=== PATIENT | female | born 1955 | race Hispanic/Latino ===

== ENCOUNTER 2018-12-25 14:34 | Outpatient (CLI) | payer OTHER ==
--- NOTE | 2018-12-25 15:34 | BD ---
DEXA DENSITOMETRY: HISTORY: Postmenopausal screening. FINDINGS: LUMBAR SPINE BMD (g/cm2) T-SCORE L1 1.183 1.8 L2 1.247 2.0 L3 1.314 2.1 L4 1.357 2.7 TOTAL 1.277 2.1 FEMORAL NECK 0.772 -0.7 TOTAL 1.001 0.5 IMPRESSION: The bone mineral density of the lumbar spine and the femoral neck are both within the normal range. POS: OFF
== END 2018-12-25 14:35 | disposition home or self-care (01) ==
LOC: BICMAMMO 14:34
PROVIDERS: ATTEND Family Medicine
DX: Z13.820 Encounter for screening for osteoporosis (principal)
CPT/HCPCS: 77080

== ENCOUNTER → 2019-10-10 | Day surgery (SDC) | payer BC ==
--- NOTE | 2019-10-10 13:40 | MMO ---
MAMMOGRAM FINDINGS: The breasts are heterogeneously dense, which could obscure a lesion on mammography. There is a new biopsy clip seen in the outer region of the right breast. IMPRESSION: NEW BIOPSY CLIP IN THE RIGHT BREAST IS CONFIRMED UTILIZING POST PROCEDURE MAMMOGRAM. Reported by: KRISHNA RUSSELL MD Electonically Signed: [id number]
--- NOTE | 2019-10-10 13:57 | ULT ---
EXAM: Ultrasound-guided right breast biopsy PROVIDED CLINICAL HISTORY: Right breast mass COMPARISON: 10/08/2019 ultrasound FINDINGS: Limited sonographic interrogation was performed of the right breast, with localization of the previou sly described mass. Informed consent was obtained from the patient. The skin overlying this region was prepped and draped in the usual sterile manner and the soft tissues anesthetized with 1% buffered lidocaine. A small skin incision was made. Continuous ultrasound guidance was utilized to obtain 4 core samples of the mass. Subsequently, continuous ultrasound guidance was utilized to place a biopsy site marker. [place] were withdrawn and hemostasis achieved. No immediate complications. IMPRESSION: Technically successful right breast biopsy. Please correlate with histology results to follow.
== END ==
LOC: BICULT 12:51
PROVIDERS: ATTEND Family Medicine
PROC: 0H9T3ZX Drainage of Right Breast, Percutaneous Approach, Diagnostic (ICD-10-PCS; principal; 2019-10-10)
DX: C50.411 Malignant neoplasm of upper-outer quadrant of right female breast (principal); Z88.6 Allergy status to analgesic agent
CPT/HCPCS: 19083; 88305; 88341; 88342

== ENCOUNTER 2019-11-28 07:04 | Outpatient (CLI) | payer BC, OTHER ==
[2019-11-28 16:30] LABS: SARS-CoV-2 MS2 Positive; SARS-CoV-2 N Gene Negative; SARS-CoV-2 S Gene Negative; SARS-CoV-2 by NAA Not Detected (NotDetected); SARS-CoV-2 orf1ab Negative
== END 2019-11-28 07:05 | disposition home or self-care (01) ==
LOC: LABBT 07:04
PROVIDERS: ATTEND Surgery
DX: C50.911 Malignant neoplasm of unspecified site of right female breast (principal); Z20.828 Contact with and (suspected) exposure to other viral communicable diseases
CPT/HCPCS: 87635; U0003

== ENCOUNTER 2019-12-03 10:26 | Day surgery (SDC) | payer BC ==
[2019-11-27 15:46] VITALS: BMI 28.3
[~2019-12-03 10:26] MED LIST: Dexamethasone 20 MG/5 ML VIAL ONE; EPHEDRINE 25 MG/5 ML SYRINGE ONE; Lidocaine 1% PF 5 ML VIAL ONE; Ondansetron PF 4 MG/2 ML Vial ONE; PHENYLEPHRINE-NS 100 MCG/ML 10 ML SYRINGE ONE; PROPOFOL 200 MG/20 ML VIAL ONE; diphenhydrAMINE 50 MG/ML VIAL ONE
[2019-12-03] MEDS ORDERED: Midazolam HCl 2 mg/2 ml Vial ONE (11:50)
[2019-12-03] MEDS ORDERED: Lidocaine 1% w/Epinephrine 1:100K 20 ML VIAL ONE (12:22)
[2019-12-03] MEDS ORDERED: Bupivacaine 0.25% HCL 30 ML VIAL ONE (12:22)
[2019-12-03] MEDS ORDERED: Fentanyl 100 MCG/2 ML VIAL ONE ×3 (12:28→14:10)
[2019-12-03] MEDS ORDERED: Famotidine/PF 20 mg/2ml Vial ONE (12:29)
[2019-12-03] MEDS ORDERED: HYDROcodone/Acetaminophen 5/325 mg Tablet ONE (15:42)
--- NOTE | 2019-12-04 13:39 | OP ---
DATE OF PROCEDURE: 12/03/2019 PREOPERATIVE DIAGNOSIS: Right breast cancer, locally invasive with positive margin. POSTOPERATIVE DIAGNOSIS: Right breast cancer, locally invasive with positive margin. PROCEDURE PERFORMED: Re-excision mastectomy, superior and anterior margin. ANESTHESIA: General. ESTIMATED BLOOD LOSS: Minimal. COMPLICATIONS: None. SPECIMEN: New superior margin x2. BRIEF HISTORY: The patient is a 64-year-old female, who previously underwent mastectomy for locally invasive cancer. She chose not to have neoadjuvant chemotherapy. On her final pathology, the malignancy approached the superior margin and was focally involved. She also has 1/1 sentinel nodes positive. She will need postop radiation treatment, but it was thought she would have better outcome with re-excision if possible. DESCRIPTION OF PROCEDURE: The patient was taken to the operating room and laid supine on the operating room table. After general anesthetic was obtained, the right breast chest cavity was re-prepped and draped in a sterile fashion. Laterally, the incision was reopened into the mastectomy space. There was exposed muscle posteriorly. There was some fat tissue on the superior aspect. This was able to be removed all the way up toward the shoulder. This was taken in 2 specimens with suture placed on new superior margin. The wound was irrigated. Local anesthetic was applied, and the breast incision was closed using 3-0 Vicryl, 4-0 Monocryl, and Dermabond. The patient was sent to Recovery in stable condition. All instrument counts, needle counts, lap counts are correct. Job ID: [id number]
== END 2019-12-03 16:20 | disposition home or self-care (01) ==
LOC: SDC 10:26
PROVIDERS: ATTEND Surgery
PROC: 0HBT0ZZ Excision of Right Breast, Open Approach (ICD-10-PCS; principal; 2019-12-03)
DX: C50.912 Malignant neoplasm of unspecified site of left female breast (principal); K21.9 Gastro-esophageal reflux disease without esophagitis; M19.90 Unspecified osteoarthritis, unspecified site; Z79.899 Other long term (current) drug therapy; Z88.6 Allergy status to analgesic agent; Z91.040 Latex allergy status
CPT/HCPCS: 88305; 88307; J0690; J1100; J1200; J2250; J2405; J2704; J3010; S0020; S0028

== ENCOUNTER 2020-10-13 14:28 | Outpatient (CLI) | payer BC | END 2020-10-13 14:29 | disposition home or self-care (01) | LOC: BICMAMMO 14:28 | PROVIDERS: ATTEND Internal Medicine Hematology & Oncology | DX: Z08 Encounter for follow-up examination after completed treatment for malignant neoplasm (principal); Z85.3 Personal history of malignant neoplasm of breast | CPT/HCPCS: G0279 ==

== ENCOUNTER 2021-08-04 15:03 | Outpatient (CLI) | payer BC ==
[2021-08-04 16:21] LABS: Hemoglobin 13.6 g/dL (12.0-15.5); MDiff Complete? YES; Mean Corpuscular HGB CONC 32.9 g/dL (32.0-36.0); Mean Corpuscular Hemoglobin 28.6 pg (27.0-33.0); Mean Corpuscular Volume 87.2 fl (81.6-98.3); Mean Platelet Volume 8.8 fl (7.4-10.4); Platelet Count 380 10x3/uL (150-450); RBC Distribution Width 12.9 % (11.5-14.5); Red Blood Cell (RBC) Count 4.75 10x6/uL (3.90-5.03); White Blood Cell (WBC) Count 7.8 10x3/uL (3.5-10.5)
[2021-08-04 16:43] LABS: Band 1 % (5-11); Eosinophils 3 % (0-10); Lymphocytes 23 % (21-51); Monocytes 4 % (0-10); Neutrophil 69 % (42-75); Platelet Morphology Comment Appears Adequate
[2021-08-04 16:53] LABS: INR-International Normal Ratio 0.9; Prothrombin Time 10.3 sec (9.5-12.1)
[2021-08-04 16:59] LABS: Anion Gap 15 mmol/L (10-20); BUN (Urea Nitrogen) 28 mg/dL (9.8-20.1); Calc. Creatinine Clearance 0 mL/min (70-130); Calcium 10.3 mg/dL (7.8-10.44); Carbon Dioxide 31 mmol/L (23-31); Chloride 98 mmol/L (98-107); Glucose 96 mg/dL (80-115); Potassium 3.4 mmol/L (3.5-5.1); Sodium 141 mmol/L (136-145)
[2021-08-04 22:49] LABS: SARS-CoV-2 PCR by NAA Not Detected (NotDetected)
== END 2021-08-04 15:04 | disposition home or self-care (01) ==
LOC: LABBT 15:03
PROVIDERS: ATTEND Orthopaedic Surgery
DX: Z01.818 Encounter for other preprocedural examination (principal); M17.11 Unilateral primary osteoarthritis, right knee; Z20.822 Contact with and (suspected) exposure to COVID-19
CPT/HCPCS: 80048; 85025; 85610; 87081; 93005; 93010; U0003; U0005

== ENCOUNTER 2021-08-09 05:39 | Observation (INO) | payer BC, MEDICARE ==
[2021-08-04 11:16] VITALS: BMI 29.2
[2021-08-09] MEDS ORDERED: Bupivacaine PF 0.5% 30 ML VIAL ONE (06:20)
[2021-08-09] MEDS ORDERED: Lidocaine 2% Jelly 5 ML TUBE ONE (06:21)
[2021-08-09] MEDS ORDERED: fentaNYL Citrate/PF 100 MCG/2 ML SYRINGE ONE (06:21)
[2021-08-09] MEDS ORDERED: Sodium Chloride 0.9% 100 ML ONE (06:32)
[2021-08-09] MEDS ORDERED: Tranexamic Acid 1,000 MG/10 ML VIAL ONE (06:32)
[2021-08-09] MEDS ORDERED: Vancomycin HCl 500 MG VIAL ONE (06:33)
[2021-08-09] MEDS ORDERED: Vancomycin 1 GM/200 ML BAG ONE (06:33)
[2021-08-09] MEDS ORDERED: Midazolam HCl 2 mg/2 ml Vial ONE (06:42)
[2021-08-09] MEDS ORDERED: Fentanyl 100 MCG/2 ML VIAL ONE (06:42)
[2021-08-09] MEDS ORDERED: Bupivacaine HCl 0.5%/Epinephrine 1:200,000/PF 30 ml Vial ONE (07:00)
[2021-08-09] MEDS ORDERED: Ondansetron PF 4 MG/2 ML Vial IVP PRN ×3 (07:02→11:15)
[2021-08-09] MEDS ORDERED: HYDROcodone/Acetaminophen 10/325 mg Tablet PO PRN ×5 (07:02→07:45)
[2021-08-09] MEDS ORDERED: Promethazine HCl 25 MG/ML VIAL IM PRN ×4 (07:02→11:15)
[2021-08-09] MEDS ORDERED: diphenhydrAMINE 25 MG CAP PO PRN ×2 (07:02→11:15)
[2021-08-09] MEDS ORDERED: Acetaminophen 325 MG TAB PO PRN (07:02)
[2021-08-09] MEDS ORDERED: Zolpidem Tartrate 5 MG TAB PO PRN ×3 (07:02→11:15)
[2021-08-09] MEDS ORDERED: ceFAZolin (BATCH) 2 GM/100 ML BAG ONE (07:03)
[2021-08-09] MEDS ORDERED: Loratadine 10 MG TAB PO PRN (07:15)
[2021-08-09] MEDS ORDERED: Ondansetron PF 4 MG/2 ML Vial ONE (07:31)
[2021-08-09] MEDS ORDERED: Dexamethasone 20 MG/5 ML VIAL ONE (07:31)
[2021-08-09] MEDS ORDERED: PHENYLEPHRINE-NS 100 MCG/ML 10 ML SYRINGE ONE (07:31)
[2021-08-09] MEDS ORDERED: PROPOFOL 200 MG/20 ML VIAL ONE (07:31)
[2021-08-09] MEDS ORDERED: Lidocaine 1% PF 5 ML VIAL ONE (07:31)
[2021-08-09] MEDS ORDERED: Fentanyl 100 MCG/2 ML VIAL IV PRN (07:44)
[2021-08-09] MEDS ORDERED: traMADol HCl 50 MG TAB PO PRN ×2 (07:45)
[2021-08-09] MEDS ORDERED: Ropivacaine 0.2% 550 ML 550 ML NERVE BLCK SCH (07:45)
[2021-08-09] MEDS ORDERED: Promethazine HCl 25 MG/ML VIAL IVPB PRN (08:54)
[2021-08-09] MEDS ORDERED: Ondansetron HCl/PF 4 MG/2 ML Vial IVP PRN (08:54)
[2021-08-09] MEDS ORDERED: Meperidine HCl/PF 25 MG/ML VIAL ONE (09:09)
[2021-08-09] MEDS ORDERED: Fentanyl 250 MCG/5 ML VIAL ONE (09:18)
[2021-08-09] MEDS ORDERED: HYDROmorphone 2 MG/ML VIAL ONE (11:04)
[2021-08-09] MEDS ORDERED: Ketorolac Tromethamine 30 MG/ML VIAL ONE (11:04)
[2021-08-09] MEDS ORDERED: Acetaminophen 500 MG TAB ONE (11:09)
[2021-08-09] MEDS ORDERED: Naloxone HCl 0.4 mg/ml Vial IV PRN (11:15)
[2021-08-09] MEDS ORDERED: Fentanyl CADD 100 ML IVPB SCH (11:15)
[2021-08-09] MEDS ORDERED: diphenhydrAMINE 50 MG/ML VIAL IM/IV PRN (11:15)
[2021-08-09] MEDS ORDERED: Ketorolac Tromethamine 30 MG/ML VIAL IVP SCH (12:00)
[2021-08-09] MEDS: Hydrochlorothiazide 25 MG TAB PO SCH (13:48)
[2021-08-09] MEDS: Sodium Chloride 0.9% 1,000 ML IV SCH ×2 (13:48→17:07)
[2021-08-09] MEDS: Acetaminophen 500 MG TAB PO SCH ×2 (13:48→17:41)
[2021-08-09] MEDS ORDERED: ceFAZolin (BATCH) 2 GM in Premix Bag 1 BAG IVPB SCH (15:00)
[2021-08-09] MEDS: CEFAZOLIN 2 GM in Sodium Chloride 0.9% 100 ML IVPB SCH (16:12)
[2021-08-09] MEDS ORDERED: CeleCOXIB 100 MG CAP PO PRN (18:03)
[2021-08-09] MEDS: Ketorolac Tromethamine 30 MG/ML VIAL IM SCH ×2 (18:11→21:42)
[2021-08-09] MEDS: Atorvastatin Calcium 10 MG TAB PO SCH (21:42)
[2021-08-10] MEDS: CEFAZOLIN 2 GM in Sodium Chloride 0.9% 100 ML IVPB SCH (00:03)
[2021-08-10] MEDS: Acetaminophen 500 MG TAB PO SCH ×5 (00:04→23:39)
[2021-08-10] MEDS: Sodium Chloride 0.9% 1,000 ML IV SCH ×3 (05:12→23:43)
[2021-08-10] MEDS: Ketorolac Tromethamine 30 MG/ML VIAL IM SCH ×3 (05:49→21:51)
[2021-08-10 06:13] LABS: Hemoglobin 13.2 g/dL (12.0-16.0); Mean Corpuscular HGB CONC 31.5 g/dL (32.0-36.0); Mean Corpuscular Hemoglobin 29.5 pg (27.0-31.0); Mean Corpuscular Volume 93.4 fL (78.0-98.0); Mean Platelet Volume 5.9 fL (7.4-10.4); Platelet Count 325 thou/uL (130-400); RBC Distribution Width 12.3 % (11.5-14.5); Red Blood Cell (RBC) Count 4.48 mill/uL (4.20-5.40); White Blood Cell (WBC) Count 10.8 thou/uL (4.8-10.8)
[2021-08-10] MEDS: Aspirin 81 mg Enteric Coated Tablet PO SCH ×2 (09:40→20:45)
[2021-08-10] MEDS: Multivitamin W/ Minerals 1 TAB PO SCH (09:40)
[2021-08-10] MEDS: Senokot S 8.6-50 MG TAB PO SCH ×2 (09:41→20:57)
[2021-08-10] MEDS: Ferrous Gluconate 324 MG TAB PO SCH ×2 (09:41→17:50)
[2021-08-10] MEDS: Hydrochlorothiazide 25 MG TAB PO SCH (09:42)
[2021-08-10] MEDS: Atorvastatin Calcium 10 MG TAB PO SCH (20:45)
[2021-08-11] MEDS: Ketorolac Tromethamine 30 MG/ML VIAL IM SCH ×2 (05:29→15:55)
[2021-08-11] MEDS: Acetaminophen 500 MG TAB PO SCH ×2 (05:32→11:31)
[2021-08-11] MEDS: Multivitamin W/ Minerals 1 TAB PO SCH (09:01)
[2021-08-11] MEDS: Aspirin 81 mg Enteric Coated Tablet PO SCH (09:01)
[2021-08-11] MEDS: Ferrous Gluconate 324 MG TAB PO SCH (09:01)
[2021-08-11] MEDS: Hydrochlorothiazide 25 MG TAB PO SCH (09:01)
[2021-08-11] MEDS: Senokot S 8.6-50 MG TAB PO SCH (09:02)
[2021-08-11] MEDS ORDERED: HYDROcodone/Acetaminophen 10/325 mg Tablet PO PRN (10:53)
[2021-08-11] MEDS: HYDROcodone/Acetaminophen 10/325 mg Tablet PO PRN ×2 (11:23→15:21)
[2021-08-11] MEDS: Sodium Chloride 0.9% 1,000 ML IV SCH (11:30)
[2021-08-11 12:42] VITALS: BP 125/77; TEMP 97.8
== END 2021-08-11 16:45 | disposition home or self-care (01) ==
LOC: SDC 05:39 → SJJU 07:02 → SDC 13:14
PROVIDERS: ADMIT Orthopaedic Surgery; ATTEND Orthopaedic Surgery
PROC: 0SRC0J9 Replacement of Right Knee Joint with Synthetic Substitute, Cemented, Open Approach (ICD-10-PCS; principal; 2021-08-09)
PROC: 8E0YXBZ Computer Assisted Procedure of Lower Extremity (ICD-10-PCS; 2021-08-09)
PROC: 3E0T3BZ Introduction of Anesthetic Agent into Peripheral Nerves and Plexi, Percutaneous Approach (ICD-10-PCS; 2021-08-09)
DX: M17.0 Bilateral primary osteoarthritis of knee (principal); K21.9 Gastro-esophageal reflux disease without esophagitis; Z85.3 Personal history of malignant neoplasm of breast; Z79.899 Other long term (current) drug therapy; Z88.6 Allergy status to analgesic agent; Z88.8 Allergy status to other drugs, medicaments and biological substances; Z91.040 Latex allergy status
CPT/HCPCS: 36415; 85027; 96365; 96372; 96375; 96376; A4306; C1713; C1776; G0378; J0690; J1100; J1170; J1885; J2175; J2250; J2405; J2704; J2795; J3010; J3370; J3490; S0020

== ENCOUNTER 2021-10-26 13:56 | Outpatient (CLI) | payer BC | END 2021-10-26 13:57 | disposition home or self-care (01) | LOC: BICMAMMO 13:56 | PROVIDERS: ATTEND Internal Medicine Hematology & Oncology | DX: Z13.820 Encounter for screening for osteoporosis (principal); N95.8 Other specified menopausal and perimenopausal disorders; Z85.3 Personal history of malignant neoplasm of breast | CPT/HCPCS: 77080; G0279 ==

== ENCOUNTER 2021-11-03 14:44 | Outpatient (CLI) | payer BC ==
[2021-11-03 15:53] LABS: #Monocytes 0.4 10x3/uL (0.0-1.1); #Neutrophils 3.5 10x3/uL (1.5-8.4); %Basophils 0.2 % (0.0-2.0); %Eosinophils 0.2 % (0.0-6.0); %Lymphocytes 24.9 % (18.0-47.0); %Monocytes 7.8 % (0.0-10.0); %Neutrophils 66.7 % (40.0-75.0); Mean Corpuscular HGB CONC 33.8 g/dL (32.0-36.0); Mean Corpuscular Hemoglobin 29.1 pg (27.0-33.0); Mean Corpuscular Volume 86.1 fl (81.6-98.3); Mean Platelet Volume 8.6 fl (7.4-10.4); Platelet Count 383 10x3/uL (150-450); RBC Distribution Width 13.8 % (11.5-14.5); Red Blood Cell (RBC) Count 4.81 10x6/uL (3.90-5.03); White Blood Cell (WBC) Count 5.2 10x3/uL (3.5-10.5)
[2021-11-03 16:12] LABS: INR-International Normal Ratio 0.9; Prothrombin Time 9.9 sec (9.5-12.1)
[2021-11-03 16:16] LABS: Anion Gap 14 mmol/L (10-20); BUN (Urea Nitrogen) 17 mg/dL (9.8-20.1); Calc. Creatinine Clearance 0 mL/min (70-130); Carbon Dioxide 30 mmol/L (23-31); Chloride 100 mmol/L (98-107); Estimated GFR 88; Glucose 97 mg/dL (80-115); Potassium 3.3 mmol/L (3.5-5.1); Sodium 141 mmol/L (136-145)
== END 2021-11-03 14:45 | disposition home or self-care (01) ==
LOC: LABBT 14:44
PROVIDERS: ATTEND Orthopaedic Surgery
DX: Z01.818 Encounter for other preprocedural examination (principal); Z20.822 Contact with and (suspected) exposure to COVID-19
CPT/HCPCS: 80048; 85025; 85610; 87081; 87811; 93005; 93010

== ENCOUNTER 2021-11-08 05:54 | Observation (INO) | payer BC, MEDICARE ==
[2021-11-07 08:54] VITALS: BMI 29.8
[2021-11-08] MEDS ORDERED: Tranexamic Acid 1,000 MG/10 ML VIAL ONE ×2 (06:08→09:14)
[2021-11-08] MEDS ORDERED: Vancomycin 1 GM/200 ML BAG ONE (06:08)
[2021-11-08] MEDS ORDERED: Sodium Chloride 0.9% 100 ML ONE ×2 (06:08→06:55)
[2021-11-08] MEDS ORDERED: Fentanyl 100 MCG/2 ML VIAL ONE ×4 (06:24→10:49)
[2021-11-08] MEDS ORDERED: Midazolam HCl 2 mg/2 ml Vial ONE ×2 (06:24→12:08)
[2021-11-08] MEDS ORDERED: Fentanyl 100 MCG/2 ML VIAL SLOW IVP PRN ×3 (06:46→09:43)
[2021-11-08] MEDS ORDERED: Promethazine HCl 25 MG/ML VIAL IM PRN ×2 (06:46→09:45)
[2021-11-08] MEDS ORDERED: Acetaminophen 325 MG TAB PO PRN (06:46)
[2021-11-08] MEDS ORDERED: HYDROcodone/Acetaminophen 10/325 mg Tablet PO PRN ×4 (06:46→14:15)
[2021-11-08] MEDS ORDERED: diphenhydrAMINE 25 MG CAP PO PRN (06:46)
[2021-11-08] MEDS ORDERED: Zolpidem Tartrate 5 MG TAB PO PRN ×2 (06:46→09:45)
[2021-11-08] MEDS ORDERED: Ondansetron PF 4 MG/2 ML Vial IVP PRN ×2 (06:46→09:45)
[2021-11-08] MEDS ORDERED: Loratadine 10 MG TAB PO PRN (06:48)
[2021-11-08] MEDS ORDERED: Bupivacaine PF 0.5% 30 ML VIAL ONE (06:49)
[2021-11-08] MEDS ORDERED: CEFAZOLIN 2 GM VIAL ONE (06:55)
[2021-11-08] MEDS ORDERED: PROPOFOL 200 MG/20 ML VIAL ONE (07:16)
[2021-11-08] MEDS ORDERED: Dexamethasone 20 MG/5 ML VIAL ONE (07:16)
[2021-11-08] MEDS ORDERED: Bupivacaine HCl 0.5%/Epinephrine 1:200,000/PF 30 ml Vial ONE (07:16)
[2021-11-08] MEDS ORDERED: Ondansetron PF 4 MG/2 ML Vial ONE (07:16)
[2021-11-08] MEDS ORDERED: fentaNYL Citrate/PF 100 MCG/2 ML SYRINGE ONE ×2 (07:35→07:56)
[2021-11-08] MEDS ORDERED: Aspirin 81 mg Enteric Coated Tablet PO SCH (09:00)
[2021-11-08] MEDS ORDERED: Ropivacaine 0.2% 550 ML 550 ML NERVE BLCK SCH (09:45)
[2021-11-08] MEDS ORDERED: HYDROmorphone 0.5 MG/0.5 ML SYRINGE ONE (11:21)
[2021-11-08] MEDS: Aspirin 81 mg Enteric Coated Tablet PO SCH ×2 (13:54→21:38)
[2021-11-08] MEDS: Sodium Chloride 0.9% 1,000 ML IV SCH ×2 (13:54→17:09)
[2021-11-08] MEDS: Ketorolac Tromethamine 30 MG/ML VIAL IVP SCH ×3 (13:54→23:26)
[2021-11-08] MEDS: Hydrochlorothiazide 25 MG TAB PO SCH (13:54)
[2021-11-08] MEDS ORDERED: Ketorolac Tromethamine 30 MG/ML VIAL IVP SCH (14:00)
[2021-11-08] MEDS: HYDROcodone/Acetaminophen 10/325 mg Tablet PO PRN ×3 (14:20→22:50)
[2021-11-08] MEDS: CEFAZOLIN 2 GM in Sodium Chloride 0.9% 100 ML IVPB SCH ×2 (14:21→23:26)
[2021-11-08] MEDS: Atorvastatin Calcium 10 MG TAB PO SCH (21:36)
[2021-11-08] MEDS: Anastrozole 1 MG TAB PO SCH (21:37)
[2021-11-09] MEDS: Sodium Chloride 0.9% 1,000 ML IV SCH ×4 (02:30→23:28)
[2021-11-09] MEDS: HYDROcodone/Acetaminophen 10/325 mg Tablet PO PRN ×3 (02:50→17:52)
[2021-11-09] MEDS: Ketorolac Tromethamine 30 MG/ML VIAL IVP SCH ×4 (05:46→23:26)
[2021-11-09 06:19] LABS: Hemoglobin 11.3 g/dL (12.0-16.0); Mean Corpuscular HGB CONC 33.4 g/dL (32.0-36.0); Mean Corpuscular Hemoglobin 30.3 pg (27.0-31.0); Mean Corpuscular Volume 90.9 fL (78.0-98.0); Mean Platelet Volume 6.6 fL (7.4-10.4); Platelet Count 285 thou/uL (130-400); Red Blood Cell (RBC) Count 3.73 mill/uL (4.20-5.40); White Blood Cell (WBC) Count 6.9 thou/uL (4.8-10.8)
[2021-11-09] MEDS: Multivitamin W/ Minerals 1 TAB PO SCH (08:24)
[2021-11-09] MEDS: Ferrous Gluconate 324 MG TAB PO SCH ×2 (08:24→17:43)
[2021-11-09] MEDS: Senokot S 8.6-50 MG TAB PO SCH ×2 (08:24→22:19)
[2021-11-09] MEDS: Hydrochlorothiazide 25 MG TAB PO SCH (08:24)
[2021-11-09] MEDS: Aspirin 81 mg Enteric Coated Tablet PO SCH ×2 (08:24→22:19)
[2021-11-09] MEDS: Anastrozole 1 MG TAB PO SCH ×2 (22:18→22:21)
[2021-11-09] MEDS: Atorvastatin Calcium 10 MG TAB PO SCH (22:19)
[2021-11-10] MEDS: HYDROcodone/Acetaminophen 10/325 mg Tablet PO PRN ×4 (00:02→14:52)
[2021-11-10] MEDS: Ketorolac Tromethamine 30 MG/ML VIAL IVP SCH (05:44)
[2021-11-10] MEDS: Ferrous Gluconate 324 MG TAB PO SCH (08:55)
[2021-11-10] MEDS: Hydrochlorothiazide 25 MG TAB PO SCH (08:55)
[2021-11-10] MEDS: Multivitamin W/ Minerals 1 TAB PO SCH (08:55)
[2021-11-10] MEDS: Senokot S 8.6-50 MG TAB PO SCH (08:55)
[2021-11-10] MEDS: Aspirin 81 mg Enteric Coated Tablet PO SCH (08:55)
[2021-11-10] MEDS: Sodium Chloride 0.9% 1,000 ML IV SCH (08:57)
[2021-11-10 13:44] VITALS: BP 107/69; TEMP 97.9
== END 2021-11-10 15:54 | disposition home or self-care (01) ==
LOC: SDC 05:54 → SJJU 07:00
PROVIDERS: ADMIT Orthopaedic Surgery; ATTEND Orthopaedic Surgery
PROC: 0SRD0J9 Replacement of Left Knee Joint with Synthetic Substitute, Cemented, Open Approach (ICD-10-PCS; principal; 2021-11-08)
PROC: 8E0YXBZ Computer Assisted Procedure of Lower Extremity (ICD-10-PCS; 2021-11-08)
PROC: 3E0T3BZ Introduction of Anesthetic Agent into Peripheral Nerves and Plexi, Percutaneous Approach (ICD-10-PCS; 2021-11-08)
DX: M17.12 Unilateral primary osteoarthritis, left knee (principal); K21.9 Gastro-esophageal reflux disease without esophagitis; Z85.3 Personal history of malignant neoplasm of breast; Z79.811 Long term (current) use of aromatase inhibitors; Z79.82 Long term (current) use of aspirin; Z79.899 Other long term (current) drug therapy; Z88.6 Allergy status to analgesic agent; Z88.8 Allergy status to other drugs, medicaments and biological substances; Z91.040 Latex allergy status; Z96.651 Presence of right artificial knee joint
CPT/HCPCS: 36415; 85027; 96374; 96375; 96376; A4306; C1713; C1776; G0378; J0690; J1100; J1170; J1885; J2250; J2405; J2704; J2795; J3010; J3370; J3490; J7050; S0020

== ENCOUNTER 2022-10-27 08:49 | Outpatient (CLI) | payer MEDICARE | END 2022-10-27 08:50 | disposition home or self-care (01) | LOC: BICMAMMO 08:49 | PROVIDERS: ATTEND Family Medicine | DX: Z08 Encounter for follow-up examination after completed treatment for malignant neoplasm (principal); Z85.3 Personal history of malignant neoplasm of breast; Z98.890 Other specified postprocedural states | CPT/HCPCS: 77065; G0279 ==

== ENCOUNTER 2022-12-12 12:29 | Outpatient (CLI) | payer MEDICARE | END 2022-12-12 12:30 | disposition home or self-care (01) | LOC: BICMAMMO 12:29 | PROVIDERS: ATTEND Internal Medicine Hematology & Oncology | DX: Z13.820 Encounter for screening for osteoporosis (principal); C50.411 Malignant neoplasm of upper-outer quadrant of right female breast; T38.6X5A Adverse effect of antigonadotrophins, antiestrogens, antiandrogens, not elsewhere classified, initial encounter | CPT/HCPCS: 77080 ==

== ENCOUNTER 2023-01-05 08:51 | Outpatient (CLI) | payer MEDICARE | END 2023-01-05 08:52 | disposition home or self-care (01) | LOC: NM 08:51 | PROVIDERS: ATTEND Orthopaedic Surgery | DX: Z47.1 Aftercare following joint replacement surgery (principal); Z96.652 Presence of left artificial knee joint | CPT/HCPCS: 78315; A9503 ==

== ENCOUNTER 2024-12-03 10:18 | Outpatient (CLI) | payer OTHER | END 2024-12-03 10:19 | disposition home or self-care (01) | LOC: BICMAMMO 10:18 | PROVIDERS: ATTEND Internal Medicine Hematology & Oncology | DX: M85.88 Other specified disorders of bone density and structure, other site (principal); C50.411 Malignant neoplasm of upper-outer quadrant of right female breast | CPT/HCPCS: 77080 ==